=== PATIENT | female | born 1935 | race African-American/Black ===

== ENCOUNTER 2023-05-31 21:04 | Emergency (ER) | payer MEDICARE ==
[~2023-05-31] VITALS: Ht 165 cm; Wt 81.0 kg
[2023-05-31 21:42] LABS: BASOPHILS % (AUTO) 0 % (0-10); EOSINOPHILS % (AUTO) 0 % (0-10); HEMATOCRIT 36 % (35-52); HEMOGLOBIN 11.8 g/dL (11.5-16.0); LYMPHOCYTES # (AUTO) 1.3 10^3/uL (1.0-4.0); LYMPHOCYTES % (AUTO) 9 % (12-44); MEAN CORPUSCULAR HEMOGLOBIN 27 pg (25-34); MEAN CORPUSCULAR HGB CONC 33 g/dL (32-36); MEAN CORPUSCULAR VOLUME 84 fL (80-99); MEAN PLATELET VOLUME 11.9 fL (9.0-12.2); MONOCYTES # (AUTO) 0.7 10^3/uL (0.0-1.0); MONOCYTES % (AUTO) 5 % (0-12); NEUTROPHILS # (AUTO) 11.3 10^3/uL (1.8-7.8); NEUTROPHILS % (AUTO) 85 % (42-75); PLATELET COUNT 209 10^3/uL (130-400); WHITE BLOOD COUNT 13.3 10^3/uL (4.3-11.0)
[2023-05-31 21:51] LABS: CLARITY,URINE TURBID; COLOR,URINE RED; GLUCOSE, URINE (UA) NEGATIVE (NEGATIVE); KETONES,URINE NEGATIVE (NEGATIVE); PROTEIN,URINE 3+ (NEGATIVE)
[2023-05-31 22:09] LABS: BACTERIA,URINE FEW /HPF; BILIRUBIN,URINE 1+ (NEGATIVE); LEUKOCYTE ESTERASE ,URINE 3+ (NEGATIVE); RBC,URINE TNTC /HPF; RENAL EPITHELIAL CELLS,URINE RARE /HPF; SQUAMOUS EPITHELIAL CELL,UR RARE /HPF; WBC,URINE 25-50 /HPF
--- NOTE | 2023-05-31 22:45 | ED GU-Female ---
General Chief Complaint: - Reproductive Stated Complaint: UTI|PAIN Nursing Triage Note: PATIENT VERBALIZED SHE STRATED HAVING PAIN WITH URINATION YESTERDAY AND "SPOTTING" TODAY. Source: patient Exam Limitations: no limitations History of Present Illness Date Seen by Provider: May 31, 2023 Time Seen by Provider: 21:34 Initial Comments 88-year-old female presents for blood in her urine. She started to have blood today but had some dysuria yesterday. She is also having difficulty urinating, passing clots. She has never had similar symptoms in the past. She is not on any blood thinning medications. All other systems reviewed and negative except documented per HPI. Voice recognition software was used to help create this chart Allergies and Home Medications Allergies Coded Allergies: No Known Drug Allergies (Unverified , 05/31/23) Patient Home Medication List Home Medication List Reviewed: Yes Review of Systems Review of Systems Constitutional: see HPI Past [id number]-Dcyfbo Hx Patient Social History Tobacco Use?: No Use of E-Cig and/or Vaping dev: No Substance use?: No Alcohol Use?: No Past Medical History Surgery/Hospitalization HX: ORTHO Physical Exam Vital Signs Vital Signs - First Documented 05/31/23 21:20 Temp 36.0 Pulse 107 Resp 22 B/P (MAP) 145/72 (96) Pulse Ox 95 O2 Delivery Room Air Capillary Refill : Less Than 3 Seconds Height, Weight, BMI Height: '" Weight: lbs. oz. kg; 29.00 BMI Method: General Appearance: WD/WN, no apparent distress HEENT: normal ENT inspection, pharynx normal Cardiovascular: no murmur, tachycardia Respiratory: chest non-tender, lungs clear, normal breath sounds, no respiratory distress Gastrointestinal: normal bowel sounds, non tender, soft, no organomegaly Pelvic: other (I did a brief speculum exam there is no obvious vaginal bleeding. She does have a significant amount of blood coming from her urethra) Extremities: normal capillary refill Neurologic/Psychiatric: alert Skin: normal color, warm/dry Progress/Results/Core Measures Suspected Sepsis SIRS Temperature: Pulse: 107 Respiratory Rate: 22 Laboratory Tests 05/31/23 21:35: White Blood Count 13.3H Blood Pressure 145 /72 Mean: 96 Laboratory Tests 05/31/23 21:35: Platelet Count 209 Results/Orders Lab Results Laboratory Tests Test 05/31/23 21:30 05/31/23 21:35 Range/Units Urine Color RED H Urine Clarity TURBID Urine pH 8.0 5-9 Urine Specific [place] 1.020 1.016-1.022 Urine Protein 3+ H NEGATIVE Urine Glucose (UA) NEGATIVE NEGATIVE Urine Ketones NEGATIVE NEGATIVE Urine Nitrite NA NEGATIVE Urine Bilirubin 1+ H NEGATIVE Urine Urobilinogen 0.2 < = 1.0 MG/DL Urine Leukocyte Esterase 3+ H NEGATIVE Urine RBC (Auto) 3+ H NEGATIVE Urine RBC TNTC H /HPF Urine WBC 25-50 H /HPF Urine Squamous Epithelial Cells RARE /HPF Urine Renal Epithelial Cells RARE /HPF Urine Crystals NONE /LPF Urine Bacteria FEW H /HPF Urine Casts PRESENT /LPF Urine Hyaline Casts 5-10 H /LPF Urine Mucus SMALL H /LPF Urine Culture Indicated YES White Blood Count 13.3 H 4.3-11.0 10^3/uL Red Blood Count 4.30 3.80-5.11 10^6/uL Hemoglobin 11.8 11.5-16.0 g/dL Hematocrit 36 35-52 % Mean Corpuscular Volume 84 80-99 fL Mean Corpuscular Hemoglobin 27 25-34 pg Mean Corpuscular Hemoglobin Concent 33 32-36 g/dL Red Cell Distribution Width 15.1 H 10.0-14.5 % Platelet Count 209 130-400 10^3/uL Mean Platelet Volume 11.9 9.0-12.2 fL Immature Granulocyte % (Auto) 0 % Neutrophils (%) (Auto) 85 H 42-75 % Lymphocytes (%) (Auto) 9 L 12-44 % Monocytes (%) (Auto) 5 0-12 % Eosinophils (%) (Auto) 0 0-10 % Basophils (%) (Auto) 0 0-10 % Neutrophils # (Auto) 11.3 H 1.8-7.8 10^3/uL Lymphocytes # (Auto) 1.3 1.0-4.0 10^3/uL Monocytes # (Auto) 0.7 0.0-1.0 10^3/uL Eosinophils # (Auto) 0.0 0.0-0.3 10^3/uL Basophils # (Auto) 0.0 0.0-0.1 10^3/uL Immature Granulocyte # (Auto) 0.0 0.0-0.1 10^3/uL My Orders Orders - DARYN LIU DO Ua Culture If Indicated (05/31/23 21:07) Cbc With Automated Diff (05/31/23 21:25) Urine Culture (05/31/23 21:30) Vital Signs/I&O 05/31/23 21:20 Temp 36.0 Pulse 107 Resp 22 B/P (MAP) 145/72 (96) Pulse Ox 95 O2 Delivery Room Air Capillary Refill : Less Than 3 Seconds Blood Pressure Mean: 96 Departure Communication (Admissions) Spoke to Dr. Grimes, urologist at [facility]. He accepts patient in transfer, requests manual irrigation every 20 minutes as we do not have a three-way catheter. Awaiting a callback from the hospitalist service. Hemoglobin is stable at this time. Heart rate has improved slightly and her blood pressures are stable. 2300: Spoke to Dr. Woodruff, [facility], accepts admission. Pending transport. Impression Primary Impression: Gross hematuria Disposition: XFER SHT-TRM HOSP Condition: Stable Departure-Patient Inst. Referrals: NO,LOCAL PHYSICIAN (PCP) Primary Care Physician DARYN LIU DO May 31, 2023 22:45
[2023-06-01 00:35] VITALS: BP 142/68
== END 2023-06-01 00:40 | disposition short-term general hospital (02) ==
LOC: EDUNIT# 21:04 → ER FS 21:09
DX: R31.0 Gross hematuria (principal)
CPT/HCPCS: 36415; 51702; 81000; 85025; 87088